=== PATIENT | female | born 1995 | race Hispanic/Latino ===

== ENCOUNTER 2021-05-18 18:20 | Emergency (ER) | payer OTHER ==
[~2021-05-18] VITALS: Ht 152.4 cm; Wt 75.7 kg
[2021-05-18 23:09] VITALS: BP 139/82
[2021-05-18] MEDS ORDERED: IBUPROFEN 600 MG TAB PO STA (23:09)
== END 2021-05-18 23:09 | disposition home or self-care (01) ==
LOC: FSED 20:25
DX: S16.1XXA Strain of muscle, fascia and tendon at neck level, initial encounter (principal); V43.63XA Car passenger injured in collision with pick-up truck in traffic accident, initial encounter; Y92.488 Other paved roadways as the place of occurrence of the external cause
CPT/HCPCS: 99282